=== PATIENT | male | born 1955 | race Caucasian/White ===

== ENCOUNTER 2024-07-04 08:50 | Outpatient (CLI) | payer MEDICARE, BC, SELFPAY | END 2024-07-04 08:51 | disposition home or self-care (01) | LOC: NFLDREF 07-05 19:05 | PROVIDERS: PCP Internal Medicine; Referring Provider Internal Medicine; Visit Provider Internal Medicine | DX: E78.5 Hyperlipidemia, unspecified (principal); Z12.5 Encounter for screening for malignant neoplasm of prostate; Z13.9 Encounter for screening, unspecified | CPT/HCPCS: 80053; 80061; G0103 ==

== ENCOUNTER 2024-07-14 15:15 | Outpatient (CLI) | payer MEDICARE, BC, SELFPAY ==
--- NOTE | 2024-07-14 15:30 | CRLHL7_ITS ---
For Patients: As a result of the Century Cures Act, medical imaging exams and procedure reports are released immediately into your electronic medical record. You may view this report before your referring provider. If you have questions, please contact your health care provider. Indication: Unilateral inguinal hernia Technique: Grayscale and color Doppler sonography at the site of clinical concern in the right inguinal area Comparison: None Findings/impression : There is a large bowel containing right inguinal hernia. No bowel containing hernia sac extends to the level of the scrotum. Dictated by Juan C Alvarado MD @ 07/18/2024 1:25:49 PM (Electronically Signed)
== END 2024-07-14 15:16 | disposition home or self-care (01) ==
PROVIDERS: PCP Internal Medicine; Visit Provider Internal Medicine
DX: K40.90 Unilateral inguinal hernia, without obstruction or gangrene, not specified as recurrent (principal); K46.9 Unspecified abdominal hernia without obstruction or gangrene
CPT/HCPCS: 76882

== ENCOUNTER 2024-08-08 06:09 | Day surgery (SDC) | payer MEDICARE, BC, SELFPAY ==
[2024-08-08] VITALS (12 sets, daily range): BP systolic 138–166; BP diastolic 74–88; PULSE 61–84; RESP 14–22; TEMP 36.1–36.9; O2SAT 97–98; BMI 22.6
--- NOTE | 2024-08-08 07:17 | P.GSOP_ITS ---
Operative Note Date of procedure: 08/08/24 Pre-op diagnosis: 1. Large right inguinal hernia. Post-op diagnosis: 1. Large right indirect inguinal hernia. Type of Procedure: 1. Open right inguinal hernia repair with mesh. Indications: 68-year-old male was seen in clinic for evaluation of right inguinal hernia. He initially noticed a small bulge on the right side 1.5 years ago. With time the bulge has increased in size and now occupying his right hemiscrotum. Patient states that it is uncomfortable to walk with this bulge. He denies pain but occasionally had a strange sensation where he had to lie down and massage the bulge in. He denies any episodes of incarceration. On clinical exam with the patient standing up there was a large right inguinal hernia occupying the right hemiscrotum. With the patient lying down, I was able to reduce the hernia. Patient was also found to have a small left inguinal hernia. Given patient's clinical history and his physical exam, an open right inguinal hernia repair was recommended. The procedure was discussed in detail. The risks associated procedure including infection, bleeding, injury to preperitoneal organs, nerve pain, and hernia recurrence were all discussed with the patient, and he agreed to proceed. Procedure Description: After discussing the risks and benefits of the procedure, the patient signed informed consent.? The operative site was marked and the patient was brought to the operating room and placed on the operating table in supine position.? Care was taken to pad the patient's pressure points.?? The patient was then intubated by anesthesia.?? The operative site was then prepped and draped in the usual sterile fashion.? A time-out was then performed. Surgical site was prepped and draped in sterile fashion. Site of the incision was marked with a marking pen and local anesthetic was injected. An oblique i ncision was made just above and medial to the right inguinal ligament. Subcutaneous tissue was dissected to external obliques. Superficial subcutaneous vascular branches were clamped, divided and tied with 3-0 Vicryl ties. Small incision was made through the external oblique aponeurosis with scalpel. I then used Metzenbaum scissors to dissect under external obliques and extend my incision. Mosquito clamps were placed on the edges of external oblique exposing the inguinal floor. The right Ilioinguinal nerve was identified and was going through the plain of dissection. The nerve was divided with cautery. I then identified the spermatic cord and the hernia sac. There were adhesions to the pubic tubercle and to the testicle. Those adhesions were taken down with cautery and testicle was eviscerated to be able to identify the large hernia sac easily. The hernia sac was then dissected off the spermatic cord bluntly and with cautery. The hernia sac was entered during this dissection and no intra- abdominal organs were incarcerated in the hernia sac. The testicle was placed into the scrotum. The hernia sac was further examined and inferior medial wall of the hernia sac was fatty. This was thought to be the leading edge of the hernia sac. This fatty tissue did not appear to be epiploic fat or small bowel mesentery. This fat was dissected of the hernia sac and reduced into the abdomen. A stitch using 2-0 Vicryl was placed near the base of the hernia sac through the sac and the hernia sac tied off. Hernia sac was then excised and not sent to pathology. The cut edge of the hernia sac was then oversewn with a running locking 2-0 Vicryl suture. This was then pushed into preperitoneal space through the internal ring. Surgical field was examined for bleeding and hemostasis was achieved with cautery and Vicryl ties. There was no evidence of direct inguinal hernia. A Bard mesh onlay was also used for hernia repair. The mesh onlay was sutured in place with interrupted 0-0 Neurolon sutures to the conjoint tendon medially and shelving edge laterally, pubic tubercle inferiorly. Simple interrupted sutures were placed using 0-0 Neurolon at the base of internal inguinal ring making it only large enough to fit a tip of one finger through. Spermatic cord was placed back into scrotum. Gallo drain was removed. External oblique aponeurosis was closed with a running 3-0 Vicryl. Additional local anesthetic was injected into subcutaneous tissues. Rogelio's fascia and subcutaneous tissue was re-approximated with interrupted Vicryl stitches. Skin incision was closed with 4-0 Monocryl subcuticular stitch. Steri strips and sterile dressing were applied over incision. All counts were correct at the end of the case. Patient tolerated this procedure well and was transferred to PACU in stable condition. Findings: Large indirect hernia sac. Implants: Bard mesh. Anesthesia: GETA Surgeon: Zahira Aguirre MD Estimated blood loss (mL): 5 Condition: stable Disposition: PACU
--- NOTE | 2024-08-08 07:17 | W.PM.H&PU ---
History & Physical Update History & Physical Update H&P Reviewed and patient assessed: No changes noted
[2024-08-08] MEDS: 0.9 % SODIUM CHLORIDE 500 ML 500 ML 100 ML IV (07:21)
[2024-08-08] MEDS: CEFAZOLIN 2 GM INJ IVP (07:44)
[2024-08-08] MEDS: LIDOCAINE 1%-EPI 1:100,000 20 ML INFILTRATI (08:56)
[2024-08-08] MEDS: BUPIVACAINE 0.25% 30 ML INJECTION (08:56)
--- NOTE | 2024-08-08 09:25 | W.ANESCHARGE ---
Anesthesia Charges Start Date/Time Anesthesia Start Date: 08/08/24 Anesthesia Start Time: 07:28 Stop Date/Time Anesthesia Stop Date: 08/08/24 Anesthesia Stop Time: 09:23
--- NOTE | 2024-08-08 09:30 | SUR.PHASEI ---
Addendum entered by Kyung Ramsey RN 08/08/24 09:51: Should read, Clearing secretions from throat Original Note: Patient arrived to PACU awake and clearing sections from his throat. Denies pain or nausea. Stated he has sinus trouble, VSS, O2 98%
--- NOTE | 2024-08-08 09:47 | SUR.PHASEI ---
Patient awake and comfortable. Does not want ice chips. Patient meets discharge criteria from PACU
[2024-08-08] MEDS: HYDROCODONE-ACETAMIN 5-325 MG 1 TAB PO (10:56)
== END 2024-08-08 11:10 | disposition home or self-care (01) ==
PROVIDERS: PCP Internal Medicine; Visit Provider Surgery
PROC: (CPT 49505; principal; 2024-08-08 07:30)
DX: K40.90 Unilateral inguinal hernia, without obstruction or gangrene, not specified as recurrent (principal)
CPT/HCPCS: 49505; 00830; A9270; C1781; J0330; J0665; J0690; J1100; J2405; J2704; J2710; J3010; J7030